=== PATIENT | female | born 1950 | race Caucasian/White ===

== ENCOUNTER 2020-04-29 09:23 | Emergency (ER) | payer BC, OTHER ==
[~2020-04-29] VITALS: Ht 165.1 cm; Wt 68.9 kg
[2020-04-29] MEDS ORDERED: LORAZEPAM 2MG/ML CPJ IV ONE (10:45)
[2020-04-29 10:51] LABS: BASOPHILS % 0.8 % (0.0-2.0); HEMOGLOBIN. 13.6 g/dL (12.0-16.0); LYMPHOCYTES % 38.5 % (20.0-50.0); MEAN CORPUSCULAR HEMOGLOBIN 32.5 pg (28.0-32.0); MEAN CORPUSCULAR VOLUME 95.7 fL (81.0-99.0); MEAN PLATELET VOLUME 10.5 fl (7.4-10.4); MONOCYTES % 8.9 % (2.0-8.0); NEUTROPHILS % 49.8 % (40.0-76.0); PLATELET 144 x1000/uL (130-400); RED BLOOD CELL COUNT 4.18 mill/uL (4.2-5.4); RED CELL DISTRIBUTION WIDTH 13.7 % (11.6-14.6)
[2020-04-29 10:57] LABS: CHLORIDE 102 mEq/L (98-107)
[2020-04-29 11:00] VITALS: BP 146/66
[2020-04-29 11:02] LABS: ETHANOL BLOOD < 10 mg/dL
== END 2020-04-29 11:00 | disposition left against medical advice (07) ==
LOC: ER 09:23
DX: R42 Dizziness and giddiness (principal)
CPT/HCPCS: 36415; 80053; 80320; 85025; 93005; 99284; G0480